=== PATIENT | male | born 1945 | race Caucasian/White ===

== ENCOUNTER 2016-07-31 10:34 | Emergency (ER) | payer OTHER ==
[~2016-07-31] VITALS: Ht 185.4 cm; Wt 108.0 kg
[~2016-07-31 10:34] MED LIST: ARC10 PO; CLX20 PO; LANS30CA12 PO
[2016-07-31 10:54] VITALS: TEMP 36.7; Ht 185.4 cm; Wt 108.0 kg
[2016-07-31] MEDS ORDERED: NMN10 PO (11:09)
[2016-07-31] MEDS ORDERED: ATOR-26 PO (11:09)
[2016-07-31] MEDS ORDERED: LOSA1TAB38 PO (11:09)
--- NOTE | 2016-07-31 11:17 | EMERGENCY ROOM VISIT NOTE ---
History Report prepared by Александр: Leonel Knowles Under the Supervision of: Dr. Angeles Baker M.D. First contact with patient: 11:04 Chief Complaint: SYNCOPE Stated Complaint: FELL, EPISODE OF UNRESPONSIVENESS AT 6:30 AM History of Present Illness The patient is a 71 year old male who presents to the Emergency Room with complaints of an episode of unresponsiveness that occurred at 0630 this morning. The episode lasted approximately one minute. The patient cannot recall the episode. His notes that he was diaphoretic when he came to. The patient did have a fall in his bathroom at 0600 when he got out of bed. The patient's was able to help him up. The unresponsive episode occurred afterwards when he was on the toilet. The patient was also feeling nauseous earlier but he did not vomit. He appears to be back at baseline per family. They note that he had a fall several weeks ago also. 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 The patient follows up with Dr. Mancilla (Neurologist) and Dr. Corona (Family Medicine). He is not on any blood thinners. The patient and family deny recent fevers, cough, cold symptoms, chest pain, or rectal bleeding. He has hypertension and hypercholesterolemia but does not have diabetes. He denies stroke or cardiac history. Source of History: patient, family Onset: 0630 this morning Position: other (global) Quality: other (unresponsive) Timing: resolved Associated Symptoms: + diaphoresis, + nausea, No chest pain, No cough, No fevers, No vomiting Review of Systems See HPI for pertinent positives & negatives. A total of 10 systems reviewed and were otherwise negative. Past Medical & Surgical Medical Problems: (1) Short-term memory loss Family History No pertinent family history Social History Smoking Status: Never Smoker Marital Status: Housing Status: lives with family Current/Historical Medications Scheduled Atorvastatin (Lipitor), 1 TAB PO DAILY Citalopram (Celexa *), 20 MG PO DAILY Donepezil Hcl (Aricept *), 10 MG PO DAILY Losartan Potassium (Cozaar), 1 TAB PO DAILY Memantine (Namenda), 1 TAB PO BID Allergies Coded Allergies: No Known Allergies (Verified , 07/31/16) Physical Exam Vital Signs Date Time Temp Pulse Resp B/P Pulse Ox O2 Delivery O2 Flow Rate FiO2 07/31/16 13:54 62 98 07/31/16 13:49 58 96 07/31/16 13:44 62 98 07/31/16 13:39 60 98 07/31/16 13:34 62 96 07/31/16 13:31 110/71 07/31/16 13:29 63 96 07/31/16 13:24 60 98 07/31/16 13:19 65 07/31/16 13:14 60 98 07/31/16 13:09 63 95 07/31/16 13:04 65 96 07/31/16 13:01 108/71 07/31/16 12:59 64 96 07/31/16 12:54 63 07/31/16 12:52 133/80 07/31/16 12:50 61 130/76 69 122/71 71 133/80 07/31/16 12:49 130/76 07/31/16 12:19 63 9 07/31/16 12:14 63 4 07/31/16 12:09 77 12 07/31/16 12:04 71 13 07/31/16 12:01 123/87 07/31/16 11:59 68 14 07/31/16 11:54 69 23 07/31/16 11:49 68 17 108/58 07/31/16 11:44 65 14 07/31/16 11:39 75 13 07/31/16 11:34 68 14 07/31/16 11:32 70 07/31/16 11:29 81 14 07/31/16 11:16 114/67 07/31/16 10:54 36.7 85 20 127/87 99 Room Air Physical Exam Vital signs reviewed. General: Well-appearing male, in no significant distress. HEENT: No scleral icterus, PERRLA, neck supple. Atraumatic. Cardiovascular: Regular rate and rhythm, no extra sounds. Pulmonary: Clear to auscultation bilaterally, normal work of breathing. Abdomen: Soft, nontender, nondistended, positive bowel sounds. Musculoskeletal: Atraumatic, no peripheral edema. Neurologic: Patient awake alert. pleasantly confused and able to follow commands. Skin: Warm, dry, no rash Medical Decision & Procedures ER Provider Diagnostic Interpretation: X-ray results as stated below per my interpretation and radiologist interpretation. Other radiology results as stated below per my review and radiologist interpretation: HEAD CT NONCONTRAST CT DOSE: 614.27 mGy.cm HISTORY: AMS TECHNIQUE: Multiaxial CT images of the head were performed without the use of intravenous contrast. Comparison: None. Findings: The paranasal sinuses and mastoid air cells are clear. The calvarium and skull base are intact. The ventricles and sulci are within normal limits. There is no mass, hematoma, midline shift, or acute infarct. Impression: No acute intracranial abnormality. Electronically signed by: Lakhwinder Pizarro M.D. 07/31/2016 12:52 PM Dictated Date/Time: 07/31/2016 12:52 PM CHEST ONE VIEW PORTABLE CLINICAL HISTORY: AMS, weakness dyspnea COMPARISON STUDY: 11/23/2009 FINDINGS: The bones soft tissues and hemidiaphragms are normal. The cardiomediastinal silhouette is normal. The lungs are clear. The pulmonary vasculature is normal. IMPRESSION: Negative chest. Electronically signed by: Lakhwinder Pizarro M.D. 07/31/2016 11:49 AM Dictated Date/Time: 07/31/2016 11:49 AM Laboratory Results 07/31/16 11:30 Red Blood Count 5.50, Mean Corpuscular Volume 87.3, Mean Corpuscular Hemoglobin 30.4, Mean Corpuscular Hemoglobin Concent 34.8, Mean Platelet Volume 9.6, Neutrophils (%) (Auto) 73.3, Lymphocytes (%) (Auto) 20.0, Monocytes (%) (Auto) 5.0, Eosinophils (%) (Auto) 1.2, Basophils (%) (Auto) 0.3, Neutrophils # (Auto) 4.36, Lymphocytes # (Auto) 1.19, Monocytes # (Auto) 0.30, Eosinophils # (Auto) 0.07, Basophils # (Auto) 0.02 07/31/16 11:30 Test 07/31/16 11:30 07/31/16 11:40 White Blood Count 5.95 K/uL (4.8-10.8) Red Blood Count 5.50 M/uL (4.7-6.1) Hemoglobin 16.7 g/dL (14.0-18.0) Hematocrit 48.0 % (42-52) Mean Corpuscular Volume 87.3 fL (80-100) Mean Corpuscular Hemoglobin 30.4 pg (25-34) Mean Corpuscular Hemoglobin Concent 34.8 g/dl (32-36) Platelet Count 164 K/uL (130-400) Mean Platelet Volume 9.6 fL (7.4-10.4) Neutrophils (%) (Auto) 73.3 % Lymphocytes (%) (Auto) 20.0 % Monocytes (%) (Auto) 5.0 % Eosinophils (%) (Auto) 1.2 % Basophils (%) (Auto) 0.3 % Neutrophils # (Auto) 4.36 K/uL (1.4-6.5) Lymphocytes # (Auto) 1.19 K/uL (1.2-3.4) Monocytes # (Auto) 0.30 K/uL (0.11-0.59) Eosinophils # (Auto) 0.07 K/uL (0-0.5) Basophils # (Auto) 0.02 K/uL (0-0.2) RDW Standard Deviation 43.2 fL (36.4-46.3) RDW Coefficient of Variation 13.5 % (11.5-14.5) Immature Granulocyte % (Auto) 0.2 % Immature Granulocyte # (Auto) 0.01 K/uL (0.00-0.02) Urine Color YELLOW Urine Appearance CLOUDY (CLEAR) Urine pH 6.0 (4.5-7.5) Urine Specific [place] 1.025 (1.000-1.030) Urine Protein NEG (NEG) Urine Glucose (UA) NEG (NEG) Urine Ketones NEG (NEG) Urine Occult Blood NEG (NEG) Urine Nitrite NEG (NEG) Urine Bilirubin NEG (NEG) Urine Urobilinogen NEG (NEG) Urine Leukocyte Esterase NEG (NEG) Urine WBC (Auto) 1-5 /hpf (0-5) Urine RBC (Auto) 0-4 /hpf (0-4) Urine Hyaline Casts (Auto) 5-10 /lpf (0-5) Urine Epithelial Cells (Auto) 10-20 /lpf (0-5) Urine Bacteria (Auto) NEG (NEG) Anion Gap 7.0 mmol/L (3-11) Est Creatinine Clear Calc Drug Dose 74.9 ml/min Estimated GFR () 71.1 Estimated GFR (Non- 61.3 BUN/Creatinine Ratio 16.0 (10-20) Calcium Level 8.7 mg/dl (8.5-10.1) Magnesium Level 2.3 mg/dl (1.8-2.4) Total Bilirubin 0.5 mg/dl (0.2-1) Direct Bilirubin 0.1 mg/dl (0-0.2) Aspartate Amino Transf (AST/SGOT) 14 U/L (15-37) Alanine Aminotransferase (ALT/SGPT) 24 U/L (12-78) Alkaline Phosphatase 88 U/L (45-117) Total Creatine Kinase 99 U/L (39-308) Creatine Kinase MB 1.8 ng/ml (0.5-3.6) Creatine Kinase MB Ratio 1.8 (0-3.0) Total Protein 7.3 gm/dl (6.4-8.2) Albumin 3.8 gm/dl (3.4-5.0) Bedside Troponin I 0.000 ng/ml (0-0.045) Laboratory results per my review. ECG Indication: syncope Rate (beats per minute): 70 Rhythm: normal sinus Findings: no acute ischemic change, other (previous inferior infarct) ED Course 1108: Past medical records reviewed. The patient was evaluated in room C10. A complete history and physical examination was performed. 1400: Reassessed the patient. Discussed the treatment plan with him. He verbalized understanding and agreement. The patient is ready for discharge. Medical Decision Differential diagnosis: Etiologies such as metabolic, infection, hypo/hyperglycemia, electrolyte abnormalities, cardiac sources, intracerebral event, toxicologic, neurologic, as well as others were entertained. This patient was evaluated and appeared to be in no significant distress. IV access was obtained and laboratory work was drawn. EKG reveals no evidence of acute ischemic change. The patient does have a history of dementia likely from years of contact sports and head injuries. The patient is not able to give much history. He denies any history of chest pain or palpitations. At this time the etiology of the sink be is unclear, seems likely that this may have been related to straining for a bowel movement. He wishes to be discharged to the care of his family and will follow-up with his primary care physician for further management. He will return to the ER for worsening of symptoms or any medical concerns. Impression Primary Impression: Syncope Scribe Attestation The scribe's documentation has been prepared under my direction and personally reviewed by me in its entirety. I confirm that the note above accurately reflects all work, treatment, procedures, and medical decision making performed by me. Departure Information Dispostion Home / Self-Care Referrals No Doctor, Assigned (PCP) Forms HOME CARE DOCUMENTATION FORM, IMPORTANT VISIT INFORMATION Patient Instructions [facility] Additional Instructions Diagnosis: Syncope Drink plenty of clear fluids. Monitor for chest pain, shortness of breath, palpitations Follow-up with your primary care physician for further cardiac testing. Return to the ER for worsening of symptoms or any medical concerns. Problem Qualifiers Primary Impression: Syncope Syncope type: vasovagal syncope Qualified Codes: R55 - Syncope and collapse
[2016-07-31 11:43] LABS: BASO % 0.3 %; BASO ABS # 0.02 K/uL (0-0.2); COMPLETE YES; EOS % 1.2 %; IG% 0.2 %; LYMPH ABS # 1.19 K/uL (1.2-3.4); MEAN CELL VOLUME 87.3 fL (80-100); MEAN CORPUSCULAR HEMOGLOBIN 30.4 pg (25-34); MEAN CORPUSCULAR HGB CONC 34.8 g/dl (32-36); MEAN PLATELET VOLUME 9.6 fL (7.4-10.4); NEUT % 73.3 %; PLATELET COUNT 164 K/uL (130-400); WHITE BLOOD COUNT 5.95 K/uL (4.8-10.8)
[2016-07-31 11:47] LABS: URINE APPEARANCE CLOUDY (CLEAR); URINE BILIRUBIN NEG (NEG); URINE COLOR YELLOW; URINE NITRITE NEG (NEG); URINE SPECIFIC GRAVITY 1.025 (1.000-1.030); UROBILINOGEN NEG (NEG); ZZUR CULT IF INDIC CLEAN CATCH NO
--- NOTE | 2016-07-31 11:50 | DIAGNOSTIC IMAGING REPORT ---
CHEST ONE VIEW PORTABLE CLINICAL HISTORY: AMS, weakness dyspnea COMPARISON STUDY: 11/23/2009 FINDINGS: The bones soft tissues and hemidiaphragms are normal. The cardiomediastinal silhouette is normal. The lungs are clear. The pulmonary vasculature is normal. IMPRESSION: Negative chest. Electronically signed by: Lakhwinder Pizarro M.D. 07/31/2016 11:49 AM Dictated Date/Time: 07/31/2016 11:49 AM
[2016-07-31 11:51] LABS: MANUAL MICROSCOPIC REQUIRED? NO; REVIEW REQ? NO
[2016-07-31 12:00] LABS: CALCIUM 8.7 mg/dl (8.5-10.1); CREATININE 1.2 mg/dl (0.60-1.40); MAGNESIUM 2.3 mg/dl (1.8-2.4); POTASSIUM 3.9 mmol/L (3.5-5.1)
[2016-07-31 12:05] LABS: CKMB/CK RATIO 1.8 (0-3.0)
--- NOTE | 2016-07-31 12:54 | DIAGNOSTIC IMAGING REPORT ---
HEAD CT NONCONTRAST CT DOSE: 614.27 mGy.cm HISTORY: AMS TECHNIQUE: Multiaxial CT images of the head were performed without the use of intravenous contrast. Comparison: None. Findings: The paranasal sinuses and mastoid air cells are clear. The calvarium and skull base are intact. The ventricles and sulci are within normal limits. There is no mass, hematoma, midline shift, or acute infarct. Impression: No acute intracranial abnormality. Electronically signed by: Lakhwinder Pizarro M.D. 07/31/2016 12:52 PM Dictated Date/Time: 07/31/2016 12:52 PM
[2016-07-31 13:31] VITALS: BP 110/71
[2016-07-31 13:54] VITALS: PULSE 62; O2SAT 98
== END 2016-07-31 14:28 | disposition home or self-care (01) ==
LOC: C.EDB 10:37 → C.EDC 14:28
DX: R55 Syncope and collapse (principal); I10 Essential (primary) hypertension; E78.00 Pure hypercholesterolemia, unspecified; F03.90 Unspecified dementia, unspecified severity, without behavioral disturbance, psychotic disturbance, mood disturbance, and anxiety